=== PATIENT | male | born 1990 | race Caucasian/White ===

== ENCOUNTER 2018-08-21 21:36 | Emergency (ER) | payer BC ==
[~2018-08-21] VITALS: Ht 162.6 cm; Wt 59.0 kg
[2018-08-21 21:50] VITALS: BP 110/73
[2018-08-21] MEDS ORDERED: predniSONE 20 MG TABLET ONE (21:57)
[2018-08-21] MEDS ORDERED: IPRATROPIUM NEB FS 0.5 MG/2.5 ML AMPUL.NEB NEB ONE (22:00)
[2018-08-21] MEDS ORDERED: predniSONE 20 MG TABLET PO ONE (22:00)
[2018-08-21] MEDS ORDERED: ALBUTEROL FS 2.5 MG/3 ML VIAL.NEB NEB ONE (22:00)
== END 2018-08-21 23:10 | disposition home or self-care (01) ==
LOC: ER 21:40
DX: J45.901 Unspecified asthma with (acute) exacerbation (principal)